=== PATIENT | female | born 1990 | race Caucasian/White ===

== ENCOUNTER 2016-08-21 13:25 | Emergency (ER) | payer OTHER ==
[2016-08-21 15:22] LABS: BUN/CREATININE RATIO 8 (0-10)
[2016-08-21 15:27] LABS: RED BLOOD COUNT 4.26 M/UL (4.00-5.10); WHITE BLOOD COUNT 5.1 K/UL (4.5-11.0)
== END 2016-08-21 16:20 | disposition home or self-care (01) ==
LOC: ER1 13:25
PROVIDERS: Nurse Practitioner Family
DX: G97.1 Other reaction to spinal and lumbar puncture (principal); Y84.4 Aspiration of fluid as the cause of abnormal reaction of the patient, or of later complication, without mention of misadventure at the time of the procedure; R19.7 Diarrhea, unspecified; F17.210 Nicotine dependence, cigarettes, uncomplicated
CPT/HCPCS: 80053; 81001; 84703; 85025; 96361; 96374; 96375; 99283; J1200; J1885; J2765; J7030

== ENCOUNTER 2016-09-05 00:39 | Emergency (ER) | payer OTHER ==
[2016-09-05 02:37] LABS: BUN/CREATININE RATIO 22 (0-10)
[2016-09-05 02:40] LABS: HEMOGLOBIN 13.2 gm/dl (12.3-15.3); RED BLOOD COUNT 4.67 M/UL (4.00-5.10); WHITE BLOOD COUNT 11.3 K/UL (4.5-11.0)
== END 2016-09-05 05:12 | disposition home or self-care (01) ==
LOC: ER1 00:39
PROVIDERS: Family Medicine
DX: R10.31 Right lower quadrant pain (principal); R11.0 Nausea; R63.0 Anorexia; Q51.2 Other doubling of uterus
CPT/HCPCS: 36415; 80053; 81001; 82150; 83690; 84703; 85025; 96374; 96375; 99284; J1885; J2405; J7030; J7050; Q9962

== ENCOUNTER 2016-10-14 13:16 | Emergency (ER) | payer OTHER ==
[2016-10-14 14:09] LABS: HEMOGLOBIN 12.1 gm/dl (12.3-15.3); RED BLOOD COUNT 4.26 M/UL (4.00-5.10); WHITE BLOOD COUNT 8.4 K/UL (4.5-11.0)
[2016-10-14 14:35] LABS: BUN/CREATININE RATIO 20 (0-10)
== END 2016-10-14 19:25 | disposition home or self-care (01) ==
LOC: ER1 13:16
PROVIDERS: Emergency Medicine
DX: R07.89 Other chest pain (principal); R00.1 Bradycardia, unspecified; G43.909 Migraine, unspecified, not intractable, without status migrainosus; F17.200 Nicotine dependence, unspecified, uncomplicated; Z98.51 Tubal ligation status
CPT/HCPCS: 36415; 71010; 80053; 80307; 81001; 82550; 82553; 83874; 84443; 84484; 85025; 85379; 93005; 99285

== ENCOUNTER 2016-10-16 01:20 | Emergency (ER) | payer OTHER | END 2016-10-16 03:42 | disposition home or self-care (01) | LOC: ER1 01:20 | DX: R07.2 Precordial pain (principal); R06.02 Shortness of breath; R42 Dizziness and giddiness; F17.210 Nicotine dependence, cigarettes, uncomplicated | CPT/HCPCS: 36415; 93005; 99285 ==

== ENCOUNTER 2020-12-19 01:27 | Emergency (ER) | payer OTHER ==
[~2020-12-19 01:27] MED LIST: BENTYL 20MG TAB20 MG PO; CEFUROXIME500 MG PO; DIFLUCAN150 MG PO; IBUPROFEN600 MG PO; NORFLEX 100 MG100 MG PO; PHENERGAN 12.12.5 M1 PO; PYRIDIUM200 MG PO; VALTREX1000 MG PO; ZOFRAN ODT 4 MG4 MG PO; ZOFRAN ODT 4 MG4 MG SL; ZOFRAN ODT4 MG PO; ZOFRAN4 MG PO
[2020-12-19 02:17] LABS: HEMOGLOBIN 14.3 gm/dl (12.3-15.3); RED BLOOD COUNT 4.92 M/UL (4.00-5.10)
[2020-12-19 02:40] LABS: BUN/CREATININE RATIO 20 (0-10)
[2020-12-19] MEDS ORDERED: ZOFRAN ODT 4 MG4 MG PO (05:36)
== END 2020-12-19 05:41 | disposition home or self-care (01) ==
LOC: ER1 01:27
PROVIDERS: Physician Assistant
DX: R06.00 Dyspnea, unspecified (principal); R07.9 Chest pain, unspecified; E87.6 Hypokalemia; Z20.822 Contact with and (suspected) exposure to COVID-19; F17.210 Nicotine dependence, cigarettes, uncomplicated
CPT/HCPCS: 71045; 80053; 85025; 93005; 99285; U0002